=== PATIENT | female | born 1940 | race Caucasian/White ===

== ENCOUNTER 2016-08-03 12:40 | Day surgery (SDC) | payer MEDICARE, OTHER ==
[~2016-08-03] VITALS: Ht 154.9 cm; Wt 68.0 kg
[~2016-08-03 12:40] MED LIST: 0.9% Sodium Chloride 1,000 ML IV PRN; LACT1CAP65 PO; LOPE1TAB13 PO; Sodium Chloride LOK Flush 10 mL Syringe IV PRN; fentaNYL-PF 50 mCg/mL 2 mL Inj IVPUSH PRN
[2016-08-03 13:35] VITALS: BP 114/68; PULSE 78; RESP 14; O2SAT 97
[2016-08-03 14:41] VITALS: BP 105/60; PULSE 67; RESP 16; O2SAT 95
[2016-08-03 14:51] VITALS: BP 93/51; PULSE 63; RESP 16; O2SAT 95
[2016-08-03 15:00] VITALS: BP 97/60; PULSE 87; RESP 16; O2SAT 97
--- NOTE | 2016-08-03 15:29 | ENDO ---
[address] [address] ENDOSCOPY PROCEDURE PATIENT: MARCELLE BESS : 1940 MR#: [id number] ADMIT: 08/03/2016 JOB ID: [id number] DATE: 08/03/2016 PRIMARY PROVIDER: Rodney Colmenares M.D. PROCEDURE: Colonoscopy. INDICATIONS: A 76-year-old female with a history of right hemicolectomy for colon cancer. She has had intermittent diarrhea that seems to come on when she is under quite a bit of stress. Otherwise, she can have one bowel movement per day much of the time. Historically she has had biopsies taken at random from the colon to evaluate this in 2010 and in 2013. Both of these did not reveal any suggestion of a microscopic colitis. Repeat early examination was recommended and is pursued today. EQUIPMENT: PCF H 190 DL. SEDATION: 1. 3 mg Versed. 2. 75 mcg fentanyl. COMPLICATIONS: None identified. BOWEL PREPARATION: Fair, adequate examination. PROCEDURAL INFORMATION: After the risks and benefits were explained, written and verbal informed consent was obtained. The patient was brought into the endoscopy suite and placed into the left lateral decubitus position. Sedation was achieved using the above-stated medications with the addition of oxygen via nasal cannula. A digital rectal examination was accomplished. No significant pathology apart from some mild internal external, nonbleeding, nonthrombosed hemorrhoids. The scope was introduced into the rectum and advanced under direct visualization to the level of the right hemicolectomy anastomosis which appeared to be widely patent. The scope was slowly withdrawn to carefully examine the mucosa for any defects or lesions. Multiple direct views were made through the dentate line for exclusion of pathology. The colon was decompressed. The scope removed the patient who tolerated the procedure well. FINDINGS: Normal appearing right hemicolectomy anastomosis. Throughout the colon, I did not appreciate any significant polyps, mass lesions or inflammatory features. The colon mucosa appeared largely normal throughout. ENDOSCOPIC DIAGNOSES: 1. Normal right hemicolectomy anastomosis. 2. Hemorrhoids. RECOMMENDATIONS: 1. The patient is encouraged to engage in daily fiber supplementation (not mentioned above, but she did have a rather angulated corner in the rectosigmoid region). 2. Repeat colonoscopy in five years' time.
== END 2016-08-03 23:59 | disposition home or self-care (01) ==
LOC: END 12:40
PROVIDERS: ATTEND Internal Medicine Gastroenterology
DX: Z12.11 Encounter for screening for malignant neoplasm of colon (principal); K64.8 Other hemorrhoids; Z85.038 Personal history of other malignant neoplasm of large intestine; Z92.21 Personal history of antineoplastic chemotherapy; K58.9 Irritable bowel syndrome, unspecified; F41.8 Other specified anxiety disorders; I45.10 Unspecified right bundle-branch block; E78.5 Hyperlipidemia, unspecified; M85.80 Other specified disorders of bone density and structure, unspecified site
CPT/HCPCS: G0105; G0500; J7030